=== PATIENT | male | born 1995 | race African-American/Black ===

== ENCOUNTER 2020-06-21 10:31 | Emergency (ER) | payer SELFPAY ==
[~2020-06-21] VITALS: Ht 185.4 cm; Wt 79.4 kg
[2020-06-21 10:43] VITALS: BP 136/94
[2020-06-21] MEDS ORDERED: IPRATROPIUM BROM 0.5 MG/2.5ML INH SOL NEB ONE (11:00)
[2020-06-21] MEDS ORDERED: methylPREDNISolone SOD SUCC 125 MG/2 ML VL IM ONE (11:00)
[2020-06-21] MEDS ORDERED: ALBUTEROL SULF 2.5 MG/0.5ML(0.5%) NEB SOLN NEB ONE (11:00)
== END 2020-06-21 11:31 | disposition home or self-care (01) ==
LOC: ER 10:31
DX: J45.901 Unspecified asthma with (acute) exacerbation (principal)
CPT/HCPCS: 94640; 96372; 99283; J2930; J7644